=== PATIENT | female | born 1965 | race African-American/Black ===

== ENCOUNTER → 2017-03-12 | Outpatient (CLI) | payer OTHER ==
[~2017-03-12] MED LIST: BACTRIM DS TAB1 EACH PO; HYDROCODONE-AP1 EAC6 PO; LISINOPRIL-HCT1 EACH PO; PREVACID30 MG PO; UNICOMPLEX M TA1 TA1 PO
[2017-03-12 13:08] LABS: HEMATOCRIT 38.2 % (37.0-47.0); HEMOGLOBIN 13.1 gm/dL (12.0-15.0); MCH 29.7 pg (26.0-34.0); MCHC 34.2 g/dL (28.0-37.0); RBC 4.4 mil/uL (4.20-5.00); RDW 13.8 % (10.5-14.5); WBC 6.8 thou/uL (4.0-11.0)
[2017-03-12 13:19] LABS: CALCIUM 9.1 mg/dL (8.5-10.1); CREATININE 0.9 mg/dL (0.6-1.0); POTASSIUM 3.4 mmol/L (3.5-5.1)
[2017-03-12 18:21] VITALS: BP 125/80
== END ==
LOC: OPONC 07:04
PROVIDERS: Specialist
DX: M86.9 Osteomyelitis, unspecified (principal)
CPT/HCPCS: 27000; 95000; 95001